=== PATIENT | male | born 1955 | race Caucasian/White ===

== ENCOUNTER 2020-02-16 07:51 | Emergency (ER) | payer BC ==
[~2020-02-16] VITALS: Ht 175.3 cm; Wt 113.4 kg
[2020-02-16] MEDS ORDERED: EPIPEN 2-P0.3 MG/0.3 IM ×2 (08:33→08:34)
[2020-02-16 09:15] VITALS: BP 126/76
== END 2020-02-16 09:17 | disposition home or self-care (01) ==
LOC: ER 07:51
DX: T63.461A Toxic effect of venom of wasps, accidental (unintentional), initial encounter (principal); F17.210 Nicotine dependence, cigarettes, uncomplicated; Z91.030 Bee allergy status; Z88.0 Allergy status to penicillin; Y92.89 Other specified places as the place of occurrence of the external cause